=== PATIENT | male | born 1955 | race African-American/Black ===

== ENCOUNTER 2020-05-09 10:36 | Outpatient (REF) | payer OTHER, SELFPAY ==
[2020-05-09 11:50] LABS: MANUAL DIFF FLAG NO
[2020-05-09 11:57] LABS: Basophils Percent Auto 0.3 % (0-2); Eosinophils Absolute Auto 0.1 X10*3/uL (0.0-0.4); Eosinophils Percent Auto 1.7 % (0-4); Hematocrit 42.6 % (42-52); Hemoglobin 14.2 g/dl (14.0-18.0); Imm Gran Abs Auto 0.02 X10*3/uL (0.00-0.03); Imm Gran Pct Auto 0.3 % (0.0-0.4); Lymphocytes Absolute Auto 2.1 X10*3/uL (1.2-4.9); Lymphocytes Percent Auto 29.9 % (20-40); Mean Corpuscular HGB Conc 33.3 g/dl (31.0-36.0); Mean Corpuscular Volume 90.1 fL (80-98); Mean Platelet Volume 12.1 fL (9.4-12.4); Monocytes Absolute Auto 0.5 X10*3/uL (0.1-1.2); Monocytes Percent Auto 7.1 % (2-11); Neutrophils Absolute Auto 4.2 X10*3/uL (2.0-8.3); Neutrophils Percent Auto 60.7 % (45-73); Platelet Count 196 X10*3/uL (160-400); Red Blood Count 4.73 X10*6/uL (4.60-5.80); Red Cell Distribution Width 11.9 % (11.0-16.0); White Blood Count 6.9 X10*3/uL (4.8-10.8)
[2020-05-09 12:09] LABS: Glucose Urine UA NEG (NEG); Leukocyte Esterase Urine NEG (NEG); Nitrite Urine NEG (NEG); PH 5.5 (5.0-8.0); Specific Gravity - Urine 1.025 (1.005-1.025); Urine Blood NEG (NEG); Urine Ketones NEG (NEG); Urine Protein NEG (NEG-TRACE)
[2020-05-09 12:13] LABS: Appearance Urine CLEAR; Color Urine YELLOW
[2020-05-09 12:33] LABS: Alanine Aminotransferase 19 U/L (0-40); Albumin Level 4.1 g/dL (3.5-5.0); Alkaline Phosphatase 71 U/L (39-117); Anion Gap 13 (12-20); Aspartate Amino Transferase 17 U/L (5-37); Bilirubin Total 1.7 mg/dL (0.0-1.0); Blood Urea Nitrogen 8 mg/dL (9-16); Calcium 8.9 mg/dL (8.4-10.2); Carbon Dioxide 29 mmol/L (22-29); Chloride 103 mmol/L (96-108); Cholesterol 133 mg/dL; Estimated Glomerular Filt Rate > 60; Glucose Fasting 163 mg/dL (60-99); HDL Cholesterol 32 mg/dL; LDL Cholesterol Calculated 82 mg/dl; Potassium 4.3 mmol/l (3.3-5.1); Sodium 141 mmol/L (135-145); Total Protein 7.1 g/dL (6.5-8.0); Triglycerides 96 mg/dL
[2020-05-09 12:42] LABS: Estimated Average Glucose 137 mg/dL; Hemoglobin A1c % 6.4 %
[2020-05-09 13:07] LABS: Reflex LDLD? No
[2020-05-09 13:10] LABS: Prostate Specific Antigen Scr 5.36 ng/mL (<0.05-4.0)
[2020-05-09 13:11] LABS: Microalbum/Creatinine Ratio Ur 47.4 ug/mg cr
== END 2020-05-09 10:37 | disposition home or self-care (01) ==
LOC: HO.LAB 10:36
PROVIDERS: PCP Internal Medicine; Visit Provider Internal Medicine
DX: Z00.00 Encounter for general adult medical examination without abnormal findings (principal); I10 Essential (primary) hypertension; E11.9 Type 2 diabetes mellitus without complications; E78.00 Pure hypercholesterolemia, unspecified; R97.20 Elevated prostate specific antigen [PSA]; Z12.5 Encounter for screening for malignant neoplasm of prostate
CPT/HCPCS: 36415; 80053; 80061; 81003; 82043; 83036; 84153; 85025

== ENCOUNTER 2020-11-13 10:12 | Outpatient (REF) | payer OTHER, SELFPAY ==
[2020-11-13 10:38] LABS: Estimated Average Glucose 137 mg/dL; Hemoglobin A1c % 6.4 %
[2020-11-13 10:55] LABS: Alanine Aminotransferase 15 U/L (0-40); Albumin Level 3.9 g/dL (3.5-5.0); Alkaline Phosphatase 73 U/L (39-117); Aspartate Amino Transferase 15 U/L (5-37); Bilirubin Direct 0.4 mg/dL (0.0-0.5); Bilirubin Total 1.2 mg/dL (0.0-1.0); Cholesterol 127 mg/dL; Glucose Fasting 163 mg/dL (60-99); HDL Cholesterol 33 mg/dL; LDL Cholesterol Calculated 75 mg/dl; Total Protein 7.1 g/dL (6.5-8.0); Triglycerides 97 mg/dL
[2020-11-13 11:28] LABS: Reflex LDLD? No
== END 2020-11-13 10:13 | disposition home or self-care (01) ==
LOC: HO.LNP 10:12
PROVIDERS: Visit Provider Internal Medicine
DX: E11.9 Type 2 diabetes mellitus without complications (principal); E78.00 Pure hypercholesterolemia, unspecified
CPT/HCPCS: 80061; 80076; 82947; 83036

== ENCOUNTER 2021-05-09 07:21 | Day surgery (SDC) | payer OTHER, SELFPAY ==
--- NOTE | 2021-05-08 13:54 | P.CONAN_ITS ---
Documented by User: Elo Byers NP 05/08/21 13:55 HPI - Anesthesia Eval Consult details Narrative: 66yo M for Colonoscopy [facility] Past Medical History Medical History (Updated 05/08/21 @ 12:19 by Azra Rice RN) Diabetes GERD (gastroesophageal reflux disease) Hyperlipidemia Hypertension Normal esophagogastroduodenoscopy (EGD) Surgical History Surgical History (Updated 05/08/21 @ 12:19 by Azra Rice RN) History of colonoscopy Social History Social History Patient Tobacco Use Status: Current someday Tobacco user Tobacco use type: Cigar Use of substances other than those prescribed or required for medical reasons: No Have you been hit, kicked, punched, or otherwise hurt by someone within the past year? If so, by whom?: No Are you DNR?: No Advance Directives: No Advance Directives Information Provided: Yes Meds Allergies Allergy/AdvReac Type Severity Reaction Status Date / Time No Known Allergies Allergy Unverified 05/07/21 20:20 Home Medications Medication Instructions Recorded Confirmed Last Taken Type Aspir-81 81 mg PO DAILY 05/08/21 05/08/21 Unknown History Fish Oil 1,000 mg PO DAILY 05/08/21 05/08/21 Unknown History atorvastatin 05/08/21 Unknown History lansoprazole 20 mg PO DAILY 05/08/21 05/08/21 Unknown History lisinopril 20 mg PO BID 05/08/21 05/08/21 Unknown History metformin 500 mg PO BID 05/08/21 05/08/21 Unknown History Exam Exam Date and Time: May 08, 2021 1354 Assessment and Plan Assessment Anesthesia Assessment: Chart Reviewed Documented by User: Champ Faustin 05/09/21 08:03 [facility] Past Medical History Medical History (Updated 05/08/21 @ 12:19 by Azra Rice RN) Diabetes GERD (gastroesophageal reflux disease) Hyperlipidemia Hypertension Normal esophagogastroduodenoscopy (EGD) Family History Family history of problems with anesthesia: No Surgical History Surgical History (Updated 05/08/21 @ 12:19 by Azra Rice RN) History of colonoscopy History of Problems with Anesthesia: No Social History Social History Patient Tobacco Use Status: Current someday Tobacco user Tobacco use type: Cigar Use of substances other than those prescribed or required for medical reasons: No Have you been hit, kicked, punched, or otherwise hurt by someone within the past year? If so, by whom?: No Are you DNR?: No Advance Directives: No Advance Directives Information Provided: Yes Meds Allergies Allergy/AdvReac Type Severity Reaction Status Date / Time No Known Allergies Allergy Unverified 05/07/21 20:20 Home Medications Medication Instructions Recorded Confirmed Last Taken Type Aspir-81 81 mg PO DAILY 05/08/21 05/08/21 Unknown History Fish Oil 1,000 mg PO DAILY 05/08/21 05/08/21 Unknown History atorvastatin 05/08/21 Unknown History lansoprazole 20 mg PO DAILY 05/08/21 05/08/21 Unknown History lisinopril 20 mg PO BID 05/08/21 05/08/21 Unknown History metformin 500 mg PO BID 05/08/21 05/08/21 Unknown History Exam Airway Mallampati Class: III TM Dist: >3cm Neck ROM: Full Loose/Missing/Broken Teeth: Yes (Caps and crowns ) Assessment and Plan Final Anesthetic Review Family History of Problems with Anesthesia: No History of Problems with Anesthesia: No NPO: Yes Final Preanesthetic Review: Anes Risks/Benef Reviewed Patient Risk: Intermediate Procedure Risk: Intermediate Anesthetic Plan Anesthetic Plan: MAC: Disposition: Standard PACU
[2021-05-09 07:26] VITALS: BMI 25.4
[2021-05-09 07:42] VITALS: BP 121/78; PULSE 96; RESP 18; TEMP 36.7; O2SAT 99
[2021-05-09 07:45] LABS: Glucose, Whole Blood 150 mg/dL (60-115)
[2021-05-09] MEDS: Lactated Ringers 1,000 ML 100 ML IVCONT (08:04)
[2021-05-09 09:36] VITALS: BP 97/58; PULSE 91; RESP 18; TEMP 36.3; O2SAT 98
--- NOTE | 2021-05-09 09:40 | P.BOP_ITS ---
Brief Operative Note Date of Service: 05/09/21 Pre-op diagnosis: Screening Post-op diagnosis: other (Colon polyp) Procedure: Colonoscopy to cecum and TI with bx/removal of polyp Surgeon: Kvng Salazar Anesthesia: MAC Was an Health Education Coordinator used for this Procedure?: No Estimated blood loss (mL): 2.0 Pathology: other (A. Cecal polyp) Condition: stable Disposition: PACU
[2021-05-09 09:51] VITALS: BP 111/74; PULSE 80; RESP 17; TEMP 36.3; O2SAT 100
--- NOTE | 2021-05-09 11:02 | OP_ITS ---
SURGEON: Kvng Salazar MD INDICATIONS: The patient presents for followup of colorectal cancer screening and personal history of tubular adenoma of the colon. Full consent was obtained from him for this, including risks of bleeding and perforation. PREOPERATIVE DIAGNOSIS: POSTOPERATIVE DIAGNOSIS: PROCEDURE PERFORMED: Colonoscopy to cecum and terminal ileum with biopsy and removal of polyp. ESTIMATED BLOOD LOSS: COMPLICATIONS: ANESTHESIA: ASSISTANTS: SPECIMENS: PREOPERATIVE DIAGNOSES: Colorectal cancer screening and personal history of tubular adenoma of the colon. POSTOPERATIVE DIAGNOSES: Colorectal cancer screening and personal history of tubular adenoma of the colon, small colon polyp, diverticulosis, and internal hemorrhoids. PREOPERATIVE MEDICATION USED: Monitored anesthesia care. DESCRIPTION OF PROCEDURE: The patient was placed in the left lateral decubitus position. The digital rectal exam revealed no abnormalities. The Olympus video pediatric colonoscope was entered into the rectum and advanced easily to the cecum. Once in the cecum, I did identify normal-appearing cecal pouch other than a 3 mm polyp, which was biopsied and completely removed with cold biopsy forceps. The remainder of the cecum and ileocecal valve appeared normal. The terminal ileum was cannulated and appeared normal. The scope was withdrawn back in the colon. The scope was slowly withdrawn assessing all mucosal surfaces carefully. Preparation was excellent. I did not visualize any sign of other polyps, colitis, nor angiodysplasia. There was a mild amount of sigmoid diverticulosis. In the rectum, scope was retroflexed visualizing internal hemorrhoids, but no other pathology. The rectal mucosa appeared normal. The scope was straightened and withdrawn from the patient. He tolerated the procedure well and was returned to the recovery area in stable condition. IMPRESSION: 1. Small colon polyp, status post biopsy removal. 2. Diverticulosis. 3. Internal hemorrhoids. PLAN: The results of biopsy will be checked. I would recommend a repeat colonoscopy in 5 years for further screening and surveillance. He would otherwise see me on a p.r.n. basis. MD DONNA Díaz/CLARI / [phone]
== END 2021-05-09 10:35 | disposition home or self-care (01) ==
PROVIDERS: PCP Internal Medicine; Visit Provider Internal Medicine
PROC: 0DJD8ZZ Inspection of Lower Intestinal Tract, Via Natural or Artificial Opening Endoscopic (ICD-10-PCS; CPT 45378; principal; 2021-05-09 08:30)
DX: Z12.11 Encounter for screening for malignant neoplasm of colon (principal); Z86.010 Personal history of colon polyps; K63.5 Polyp of colon; K57.30 Diverticulosis of large intestine without perforation or abscess without bleeding; K64.8 Other hemorrhoids; K21.9 Gastro-esophageal reflux disease without esophagitis; E78.5 Hyperlipidemia, unspecified; I10 Essential (primary) hypertension; E11.9 Type 2 diabetes mellitus without complications; Z79.84 Long term (current) use of oral hypoglycemic drugs; Z79.899 Other long term (current) drug therapy
CPT/HCPCS: 45380; 82947; 88305

== ENCOUNTER 2021-05-28 10:53 | Outpatient (REF) | payer OTHER, SELFPAY ==
[2021-05-28 10:58] LABS: MANUAL DIFF FLAG NO
[2021-05-28 11:08] LABS: Basophils Percent Auto 0.3 % (0-2); Eosinophils Absolute Auto 0.2 X10*3/uL (0.0-0.4); Eosinophils Percent Auto 2.6 % (0-4); Hematocrit 43.4 % (42.0-52.0); Hemoglobin 13.9 g/dl (14.0-18.0); Imm Gran Abs Auto 0.03 X10*3/uL (0.00-0.03); Imm Gran Pct Auto 0.4 % (0.0-0.4); Lymphocytes Absolute Auto 2.5 X10*3/uL (1.2-4.9); Lymphocytes Percent Auto 31.8 % (20-40); Mean Corpuscular Hemoglobin 29.8 pg (27.0-33.0); Mean Corpuscular Volume 93.1 fL (80.0-98.0); Mean Platelet Volume 12.5 fL (9.4-12.4); Monocytes Absolute Auto 0.6 X10*3/uL (0.1-1.2); Neutrophils Absolute Auto 4.5 x10*3/uL (2.0-8.3); Neutrophils Percent Auto 56.9 % (45-73); Platelet Count 213 X10*3/uL (160-400); Red Blood Count 4.66 X10*6/uL (4.60-5.80); Red Cell Distribution Width 11.9 % (11.0-16.0); White Blood Count 7.8 X10*3/uL (4.8-10.8)
[2021-05-28 11:15] LABS: Appearance Urine CLEAR; Color Urine YELLOW; Glucose Urine UA NEG (NEG); Leukocyte Esterase Urine NEG (NEG); Nitrite Urine NEG (NEG); PH 5.5 (5.0-8.0); Urine Blood NEG (NEG); Urine Ketones NEG (NEG); Urine Protein NEG (NEG-TRACE)
[2021-05-28 11:34] LABS: Estimated Average Glucose 137 mg/dL; Hemoglobin A1c % 6.4 %
[2021-05-28 12:04] LABS: Creatinine Urine 99.48 mg/dL; Microalbum/Creatinine Ratio Ur 28.1 ug/mg cr
[2021-05-28 12:25] LABS: Alanine Aminotransferase 25 U/L (0-40); Alkaline Phosphatase 63 U/L (39-117); Anion Gap 13 (12-20); Aspartate Amino Transferase 18 U/L (5-37); Bilirubin Total 1.3 mg/dL (0.0-1.0); Blood Urea Nitrogen 7 mg/dL (9-16); Calcium 9.3 mg/dL (8.4-10.2); Carbon Dioxide 28 mmol/L (22-29); Chloride 104 mmol/L (96-108); Cholesterol 124 mg/dL; Estimated Glomerular Filt Rate > 60; Glucose Fasting 137 mg/dL (60-99); HDL Cholesterol 29 mg/dL; LDL Cholesterol Calculated 71 mg/dl; Potassium 3.9 mmol/L (3.3-5.1); Sodium 141 mmol/L (135-145); Total Protein 7.2 g/dL (6.5-8.0); Triglycerides 123 mg/dL
[2021-05-28 12:26] LABS: PSA,Total (Free>4and<10) 9.25 ng/mL (0.00-4.00)
[2021-05-29 14:21] LABS: Free Prostate Spec Ag 0.8 ng/mL; Percent Free Prostate Spec Ag 11 % (calc) (>25); Prostate Specific Ag Total 7.6 ng/mL (< OR = 4.0)
== END 2021-05-28 10:54 | disposition home or self-care (01) ==
LOC: HO.LNP 10:53
PROVIDERS: PCP Internal Medicine; Visit Provider Internal Medicine
DX: Z00.00 Encounter for general adult medical examination without abnormal findings (principal); I10 Essential (primary) hypertension; E11.9 Type 2 diabetes mellitus without complications; E78.00 Pure hypercholesterolemia, unspecified; R97.20 Elevated prostate specific antigen [PSA]; Z12.5 Encounter for screening for malignant neoplasm of prostate
CPT/HCPCS: 80053; 80061; 81003; 82043; 83036; 84153; 84154; 85025

== ENCOUNTER 2021-11-20 10:40 | Outpatient (REF) | payer OTHER, SELFPAY ==
[2021-11-20 11:10] LABS: Estimated Average Glucose 148 mg/dL; Hemoglobin A1c % 6.8 %
[2021-11-20 11:11] LABS: Alanine Aminotransferase 21 U/L (0-40); Albumin Level 4.2 g/dL (3.5-5.0); Alkaline Phosphatase 68 U/L (39-117); Aspartate Amino Transferase 18 U/L (5-37); Bilirubin Direct 0.5 mg/dL (0.0-0.5); Bilirubin Total 1.4 mg/dL (0.0-1.0); Cholesterol 119 mg/dL; HDL Cholesterol 28 mg/dL; LDL Cholesterol Calculated 70 mg/dl; Total Protein 7.4 g/dL (6.5-8.0); Triglycerides 108 mg/dL
[2021-11-20 13:13] LABS: Reflex LDLD? No
== END 2021-11-20 10:41 | disposition home or self-care (01) ==
LOC: HO.LNP 10:40
PROVIDERS: Visit Provider Internal Medicine
DX: E11.9 Type 2 diabetes mellitus without complications (principal); E78.00 Pure hypercholesterolemia, unspecified
CPT/HCPCS: 80061; 80076; 82043; 83036

== ENCOUNTER 2021-11-29 11:11 | Outpatient (REF) | payer OTHER, SELFPAY ==
[2021-11-29 12:43] LABS: Appearance Urine CLEAR; Color Urine YELLOW; Glucose Urine UA 100 MG/DL (NEG); Leukocyte Esterase Urine NEG (NEG); Nitrite Urine NEG (NEG); PH 5.5 (5.0-8.0); Specific Gravity - Urine 1.025 (1.005-1.025); Urine Blood NEG (NEG); Urine Ketones NEG (NEG); Urine Protein NEG (NEG-TRACE)
[2021-11-29 13:32] LABS: Creatinine Urine 201.48 mg/dL; Microalbum/Creatinine Ratio Ur 8.4 ug/mg cr
== END 2021-11-29 11:12 | disposition home or self-care (01) ==
LOC: HO.LNP 11:11
PROVIDERS: Visit Provider Internal Medicine
DX: E11.9 Type 2 diabetes mellitus without complications (principal); I10 Essential (primary) hypertension
CPT/HCPCS: 81003; 82043

== ENCOUNTER 2022-05-28 11:32 | Outpatient (REF) | payer MEDICARE, SELFPAY ==
[2022-05-28 11:38] LABS: MANUAL DIFF FLAG NO
[2022-05-28 12:04] LABS: Basophils Percent Auto 0.1 % (0-2); Eosinophils Absolute Auto 0.3 X10*3/uL (0.0-0.4); Eosinophils Percent Auto 3.8 % (0-4); Hematocrit 40.8 % (42.0-52.0); Hemoglobin 13.7 g/dl (14.0-18.0); Imm Gran Abs Auto 0.01 X10*3/uL (0.00-0.03); Imm Gran Pct Auto 0.1 % (0.0-0.4); Lymphocytes Absolute Auto 2.6 X10*3/uL (1.2-4.9); Lymphocytes Percent Auto 35.1 % (20-40); Mean Corpuscular HGB Conc 33.6 g/dl (31.0-36.0); Mean Corpuscular Volume 92.3 fL (80.0-98.0); Mean Platelet Volume 12.4 fL (9.4-12.4); Monocytes Absolute Auto 0.6 X10*3/uL (0.1-1.2); Monocytes Percent Auto 8.3 % (2-11); Neutrophils Absolute Auto 3.8 x10*3/uL (2.0-8.3); Neutrophils Percent Auto 52.6 % (45-73); Platelet Count 165 X10*3/uL (160-400); Red Blood Count 4.42 X10*6/uL (4.60-5.80); Red Cell Distribution Width 12.3 % (11.0-16.0); White Blood Count 7.3 X10*3/uL (4.8-10.8)
[2022-05-28 12:11] LABS: Appearance Urine Clear; Color Urine Yellow; Glucose Urine UA Negative (Negative); Leukocyte Esterase Urine Negative (Negative); Nitrite Urine Negative (Negative); Urine Blood Negative (Negative); Urine Ketones Negative (Negative); Urine Protein Negative (Neg-Trace)
[2022-05-28 13:01] LABS: Alanine Aminotransferase 16 U/L (0-40); Alkaline Phosphatase 72 U/L (39-117); Anion Gap 15 (12-20); Aspartate Amino Transferase 18 U/L (5-37); Blood Urea Nitrogen 7 mg/dL (9-16); Calcium 8.9 mg/dL (8.4-10.2); Carbon Dioxide 29 mmol/L (22-29); Chloride 102 mmol/L (96-108); Cholesterol 114 mg/dL; Estimated Glomerular Filt Rate > 60; Glucose Fasting 150 mg/dL (60-99); HDL Cholesterol 29 mg/dL; LDL Cholesterol Calculated 66 mg/dl; Potassium 3.7 mmol/L (3.3-5.1); Sodium 142 mmol/L (135-145); Total Protein 6.9 g/dL (6.5-8.0); Triglycerides 98 mg/dL
[2022-05-28 13:07] LABS: Estimated Average Glucose 128 mg/dL; Hemoglobin A1c % 6.1 %
[2022-05-28 13:22] LABS: Creatinine Urine 94.65 mg/dL; Microalbum/Creatinine Ratio Ur 8.4 ug/mg cr
[2022-05-28 13:51] LABS: PSA,Total (Free>4and<10) 5.47 ng/mL (0.00-4.00)
[2022-05-29 09:37] LABS: Free Prostate Spec Ag 0.8 ng/mL; Percent Free Prostate Spec Ag 17 % (calc) (>25); Prostate Specific Ag Total 4.6 ng/mL (< OR = 4.0)
== END 2022-05-28 11:33 | disposition home or self-care (01) ==
LOC: HO.LNP 11:32
PROVIDERS: Visit Provider Internal Medicine
DX: Z00.00 Encounter for general adult medical examination without abnormal findings (principal); Z12.5 Encounter for screening for malignant neoplasm of prostate; I10 Essential (primary) hypertension; E11.9 Type 2 diabetes mellitus without complications; R97.20 Elevated prostate specific antigen [PSA]
CPT/HCPCS: 80053; 80061; 81003; 82043; 83036; 84153; 84154; 85025

== ENCOUNTER 2023-06-10 10:54 | Outpatient (REF) | payer MEDICARE, SELFPAY ==
[2023-06-10 10:59] LABS: MANUAL DIFF FLAG NO
[2023-06-10 11:35] LABS: Appearance Urine Clear; Color Urine Yellow; Glucose Urine UA Negative (Negative); Leukocyte Esterase Urine Negative (Negative); Nitrite Urine Negative (Negative); Specific Gravity - Urine <= 1.005 (1.005-1.025); Urine Blood Negative (Negative); Urine Ketones Negative (Negative); Urine Protein Negative (Neg-Trace)
[2023-06-10 11:39] LABS: Basophils Percent Auto 0.3 % (0-2); Eosinophils Absolute Auto 0.1 X10*3/uL (0.0-0.4); Hematocrit 41.5 % (42.0-52.0); Imm Gran Abs Auto 0.02 X10*3/uL (0.00-0.03); Imm Gran Pct Auto 0.3 % (0.0-0.4); Lymphocytes Absolute Auto 2.6 X10*3/uL (1.2-4.9); Lymphocytes Percent Auto 36.7 % (20-40); Mean Corpuscular HGB Conc 33.7 g/dl (31.0-36.0); Mean Corpuscular Hemoglobin 30.9 pg (27.0-33.0); Mean Corpuscular Volume 91.6 fL (80.0-98.0); Monocytes Absolute Auto 0.5 X10*3/uL (0.1-1.2); Monocytes Percent Auto 7.3 % (2-11); Neutrophils Absolute Auto 3.7 x10*3/uL (2.0-8.3); Neutrophils Percent Auto 53.4 % (45-73); Platelet Count 185 X10*3/uL (160-400); Red Blood Count 4.53 X10*6/uL (4.60-5.80); Red Cell Distribution Width 11.5 % (11.0-16.0); White Blood Count 6.9 X10*3/uL (4.8-10.8)
[2023-06-10 11:42] LABS: Bacteria Urine None Seen (None Seen); Hyaline Casts Urine 0-2 /LPF (0-2); RBC Urine 0-2 /HPF (0-2); Squamous Epithelial Cell Urine 0-2 /HPF (0-2); WBC Urine 0-5 /HPF (0-5)
[2023-06-10 11:48] LABS: Estimated Average Glucose 117 mg/dL; Hemoglobin A1c % 5.7 % (<6.0)
[2023-06-10 11:56] LABS: Alanine Aminotransferase 17 U/L (0-40); Albumin Level 4.1 g/dL (3.5-5.0); Alkaline Phosphatase 71 U/L (39-117); Anion Gap 14 (12-20); Aspartate Amino Transferase 20 U/L (5-37); Bilirubin Total 1.7 mg/dL (0.0-1.0); Blood Urea Nitrogen 11 mg/dL (9-16); Calcium 8.9 mg/dL (8.4-10.2); Carbon Dioxide 31 mmol/L (22-29); Chloride 97 mmol/L (96-108); Cholesterol 101 mg/dL (<200); Estimated Glomerular Filt Rate > 60; Glucose Fasting 149 mg/dL (60-99); HDL Cholesterol 24 mg/dL (>40); LDL Cholesterol Calculated 58 mg/dL (<100); Sodium 138 mmol/L (135-145); Total Protein 7.5 g/dL (6.5-8.0); Triglycerides 97 mg/dL (<150)
[2023-06-10 12:25] LABS: Creatinine Urine 52.64 mg/dL; Microalbumin Urine < 5.0 mg/L
[2023-06-10 13:23] LABS: PSA,Total (Free>4and<10) 13.08 ng/mL (0.00-4.00)
== END 2023-06-10 10:55 | disposition home or self-care (01) ==
LOC: HO.LNP 10:54
PROVIDERS: Visit Provider Internal Medicine
DX: Z12.5 Encounter for screening for malignant neoplasm of prostate (principal); I10 Essential (primary) hypertension; E78.00 Pure hypercholesterolemia, unspecified; E11.9 Type 2 diabetes mellitus without complications; R97.20 Elevated prostate specific antigen [PSA]
CPT/HCPCS: 80053; 80061; 81001; 82043; 82570; 83036; 84153; 85025

== ENCOUNTER 2023-07-22 11:14 | Outpatient (REF) | payer MEDICARE, SELFPAY ==
[2023-07-22 12:54] LABS: PSA,Total (Free>4and<10) 6.33 ng/mL (0.00-4.00)
[2023-07-24 10:29] LABS: Free Prostate Spec Ag 0.7 ng/mL; Percent Free Prostate Spec Ag 12 % (calc) (>25); Prostate Specific Ag Total 5.7 ng/mL (< OR = 4.0)
== END 2023-07-22 11:15 | disposition home or self-care (01) ==
LOC: HO.LNP 11:14
PROVIDERS: Visit Provider Internal Medicine
DX: Z12.5 Encounter for screening for malignant neoplasm of prostate (principal); R97.20 Elevated prostate specific antigen [PSA]
CPT/HCPCS: 84153; 84154

== ENCOUNTER 2023-12-16 11:09 | Outpatient (REF) | payer MEDICARE, SELFPAY ==
[2023-12-16 11:37] LABS: Estimated Average Glucose 134 mg/dL; Hemoglobin A1c % 6.3 % (<6.0)
[2023-12-16 11:41] LABS: Alanine Aminotransferase 18 U/L (0-40); Albumin Level 4.1 g/dL (3.5-5.0); Alkaline Phosphatase 60 U/L (39-117); Aspartate Amino Transferase 19 U/L (5-37); Bilirubin Direct 0.4 mg/dL (0.0-0.5); Bilirubin Total 1.6 mg/dL (0.0-1.0); Cholesterol 113 mg/dL (<200); Glucose Fasting 150 mg/dL (60-99); HDL Cholesterol 31 mg/dL (>40); LDL Cholesterol Calculated 62 mg/dL (<100); Total Protein 7.1 g/dL (6.5-8.0); Triglycerides 102 mg/dL (<150)
[2023-12-16 13:51] LABS: Reflex LDLD? No
== END 2023-12-16 11:10 | disposition home or self-care (01) ==
LOC: HO.LNP 11:09
PROVIDERS: Visit Provider Internal Medicine
DX: E11.9 Type 2 diabetes mellitus without complications (principal); E78.00 Pure hypercholesterolemia, unspecified
CPT/HCPCS: 80061; 80076; 82947; 83036

== ENCOUNTER 2024-06-18 10:18 | Outpatient (REF) | payer MEDICARE, SELFPAY ==
[2024-06-18 10:22] LABS: MANUAL DIFF FLAG NO
[2024-06-18 10:26] LABS: Appearance Urine Clear; Color Urine Yellow; Glucose Urine UA Negative (Negative); Leukocyte Esterase Urine Trace (Negative); Nitrite Urine Negative (Negative); PH 5.5 (5.0-9.0); UMIC TRIGGER UACC YES; Urine Blood Negative (Negative); Urine Ketones Trace mg/dL (Negative); Urine Protein Negative (Neg-Trace)
[2024-06-18 10:29] LABS: Bacteria Urine None Seen (None Seen); Hyaline Casts Urine 0-2 /LPF (0-2); RBC Urine 0-2 /HPF (0-2); Squamous Epithelial Cell Urine 0-2 /HPF (0-2); WBC Urine 0-5 /HPF (0-5)
[2024-06-18 10:30] LABS: Basophils Percent Auto 0.3 % (0-2); Eosinophils Absolute Auto 0.3 X10*3/uL (0.0-0.4); Eosinophils Percent Auto 4.3 % (0-4); Hematocrit 43.1 % (42.0-52.0); Hemoglobin 14.4 g/dl (14.0-18.0); Imm Gran Abs Auto 0.01 X10*3/uL (0.00-0.03); Imm Gran Pct Auto 0.1 % (0.0-0.4); Lymphocytes Absolute Auto 2.6 X10*3/uL (1.2-4.9); Lymphocytes Percent Auto 36.7 % (20-40); Mean Corpuscular HGB Conc 33.4 g/dl (31.0-36.0); Mean Corpuscular Hemoglobin 30.9 pg (27.0-33.0); Mean Corpuscular Volume 92.5 fL (80.0-98.0); Mean Platelet Volume 12.3 fL (9.4-12.4); Monocytes Absolute Auto 0.6 X10*3/uL (0.1-1.2); Monocytes Percent Auto 7.9 % (2-11); Neutrophils Absolute Auto 3.5 x10*3/uL (2.0-8.3); Neutrophils Percent Auto 50.7 % (45-73); Platelet Count 213 X10*3/uL (160-400); Red Blood Count 4.66 X10*6/uL (4.60-5.80); Red Cell Distribution Width 11.6 % (11.0-16.0); White Blood Count 6.9 X10*3/uL (4.8-10.8)
--- OUTSIDE RECORDS SUMMARY | 2024-06-18 11:08 | XMS_ITS | Clinical Summary ---
Author Organization [facility] Address [address] [place] [address] Care Team Providers Care Bonding Agent Name Role Phone Eneida Pond DO Primary Care Provider [phone] Social History Tobacco Use Types Packs/Day Years Used Date Smoking Tobacco: Never Assessed Sex and Gender Information Value Date Recorded Sex Assigned at Not on file Gender Identity Not on file Sexual Orientation Not on file Plan of Treatment Health Maintenance Due Date Last Done Comments Hepatitis C Screening 1955 COVID-19 Vaccine (#1) 1957 Depression Screening 1969 Preventative Health Evaluation 1975 DTap / Tdap / Td (1 - Tdap) 1976 Colon Cancer Screening (Colonoscopy) 2002 Shingrix-Zoster Vaccine (1 of 2) 2007 Fall Risk Assessment 2022 Pneumococcal Vaccine (1 of 1 - PCV) 2022 Influenza Vaccine (#1) 2024 RSV Adult > 60+ Yrs or Pregn ant (1 - 1-dose 75+ series) 2032 Hepatitis B Vaccines Aged Out No long er eligible based on patient's age to complete this topic RSV Ped < 20 months Aged Out No longe r eligible based on patient's age to complete this topic Care Teams Bonding Agent Relationship Specialty Start Date End Date Eneida Pond DO [address] [facility] [address] [place] [address] PCP - General Family Medicine 01/15/17
--- OUTSIDE RECORDS SUMMARY | 2024-06-18 11:08 | XMS_ITS | Clinical Summary ---
Author Organization [facility] Address [address] [place] [address] Care Team Providers Care Collections Clerk Name Role Phone Eneida Pond DO Primary Care Provider [phone] Social History Tobacco Use Types Packs/Day Years Used Date Smoking Tobacco: Never Assessed Sex and Gender Information Value Date Recorded Sex Assigned at Not on file Legal Sex Male 7:13 AM EST Gender Identity Not on file Sexual Orientation Not on file Plan of Treatment Health Maintenance Due Date Last Done Comments DTaP,Tdap,and Td Vaccines (1 - Tdap) 1976 Zoster Vaccines (1 of 2) 2007 Pneumococcal Vaccine: 50+ Ye ars (1 of 1 - PCV) 2022 COVID-19 Vaccine (1 - 2023-2 5 season) 2024 Influenza Vaccine (#1) 2024 RSV Immunization Patients 60 + Years Old (1 - 1-dose 75+ series) 2032 HIB Vaccines Aged Out No longer eligi ble based on patient's age to complete this topic HPV Vaccines Aged Out No longer eligi ble based on patient's age to complete this topic Hepatitis A Vaccines Aged Out No long er eligible based on patient's age to complete this topic Hepatitis B Vaccines Aged Out No long er eligible based on patient's age to complete this topic IPV Vaccines Aged Out No longer eligi ble based on patient's age to complete this topic MMR Vaccines Aged Out No longer eligi ble based on patient's age to complete this topic Meningococcal ACWY Vaccine Aged Out N o longer eligible based on patient's age to complete this topic RSV Immunization Patients Un ronni 20 months Aged Out No longer eligible b ased on patient's age to complete this topic Varicella Vaccines Aged Out No longer eligible based on patient's age to complete this topic Care Teams Collections Clerk Relationship Specialty Start Date End Date Eneida Pond DO [address] [facility] [address] [place] [address] PCP - General Family Medicine 01/15/17
[2024-06-18 11:16] LABS: Alanine Aminotransferase 20 U/L (0-40); Alkaline Phosphatase 64 U/L (39-117); Anion Gap 11 (12-20); Aspartate Amino Transferase 27 U/L (5-37); Blood Urea Nitrogen 11 mg/dL (9-16); Calcium 9.4 mg/dL (8.4-10.2); Carbon Dioxide 29 mmol/L (22-29); Chloride 104 mmol/L (96-108); Cholesterol 113 mg/dL (<200); Estimated Glomerular Filt Rate > 60; Glucose Fasting 156 mg/dL (60-99); HDL Cholesterol 29 mg/dL (>40); LDL Cholesterol Calculated 69 mg/dL (<100); Sodium 140 mmol/L (135-145); Total Protein 7.5 g/dL (6.5-8.0); Triglycerides 77 mg/dL (<150)
[2024-06-18 11:46] LABS: PSA,Total (Free>4and<10) 7.04 ng/mL (0.00-4.00)
[2024-06-21 12:14] LABS: Percent Free Prostate Spec Ag 15 % (calc) (>25); Prostate Specific Ag Total 6.8 ng/mL (< OR = 4.0)
== END 2024-06-18 10:19 | disposition home or self-care (01) ==
LOC: HO.LNP 10:18
PROVIDERS: Visit Provider Internal Medicine
DX: I10 Essential (primary) hypertension (principal); E78.00 Pure hypercholesterolemia, unspecified; Z12.5 Encounter for screening for malignant neoplasm of prostate; R97.20 Elevated prostate specific antigen [PSA]
CPT/HCPCS: 80053; 80061; 81001; 84153; 84154; 85025

== ENCOUNTER 2024-12-16 12:08 | Outpatient (REF) | payer MEDICARE, SELFPAY ==
--- OUTSIDE RECORDS SUMMARY | 2024-06-18 04:00 | XMS_ITS ---
Author Organization Cuate Javier MD Address [address] [place] [id number] Care Team Providers Care Tire And Lube Technician Name Role Phone Cuate Javier Primary Care Provider Results Component Value Reference Range Notes Complete Blood Count Auto Di ff Reviewed date:06/18/2024 12:33:58 PM Interpretation: Performing Lab:[facility], [address] [place] [id number] Notes/Report: White Blood Count 6.9 4.8-10.8 X10*3/uL Red Blood Count 4.66 4.60-5.80 X10*6/uL Hemoglobin 14.4 14.0-18.0 g/dl Hematocrit 43.1 42.0-52.0 % Mean Corpuscular Volume 92.5 80.0-98.0 fL Mean Corpuscular Hemoglobin 30.9 27.0-33.0 pg Mean Corpuscular HGB Conc 33.4 31.0-36.0 g/dl Red Cell Distribution Width 11.6 11.0-16.0 % Platelet Count 213 160-400 X10*3/uL Mean Platelet Volume 12.3 9.4-12.4 fL Neutrophils Percent Auto 50.7 45-73 % Imm Gran Pct Auto 0.1 0.0-0.4 % Lymphocytes Percent Auto 36.7 20-40 % Monocytes Percent Auto 7.9 2-11 % Eosinophils Percent Auto 4.3 0-4 % Basophils Percent Auto 0.3 0-2 % NRBC Pct Auto 0.0 0.0-0.2 /100WBC Neutrophils Absolute Auto 3.5 2.0-8.3 x10*3/u L Imm Gran Abs Auto 0.01 0.00-0.03 X10*3/uL Lymphocytes Absolute Auto 2.6 1.2-4.9 X10*3/u L Monocytes Absolute Auto 0.6 0.1-1.2 X10*3/uL Eosinophils Absolute Auto 0.3 0.0-0.4 X10*3/u L Basophils Absolute Auto 0.0 0.0-0.2 X10*3/uL NRBC Abs Auto 0.000 0.0-0.012 X10*3/uL PSA,Total (Free>4and<10) Reviewed date:06/18/2024 12:33:42 PM Interpretation: Performing Lab:[address] [id number] Notes/Report: PSA,Total (Free>4and<10) 7.04 0.00-4.00 ng/mL PSA methodology: Lynch Alinity i Chemiluminescent Microparticle Immunoassay (CMIA) UA ClnCatch+Micro w/rflx Cul t Reviewed date:06/18/2024 05:16:50 PM Interpretation: Performing Lab:[address] [id number] Notes/Report: Urine, Clean Catch Color Urine Yellow Appearance Urine Clear PH 5.5 5.0-9.0 Glucose Urine UA Negative Negative mg/dL Urine Blood Negative Negative Specific [place] - Urine 1.020 1.005-1.025 Urine Protein Negative Neg-Trace mg/dL Urine Ketones Trace Negative mg/dL Nitrite Urine Negative Negative Leukocyte Esterase Urine Trace Negative RBC Urine 0-2 0-2 /HPF WBC Urine 0-5 0-5 /HPF Squamous Epithelial Cell Urine 0-2 0-2 /HPF Bacteria Urine None Seen None Seen Hyaline Casts Urine 0-2 0-2 /LPF REASON FOR VISIT yearly fasting labs Encounters Encounter Location Date Provider Diagnosis Cuate Javier MD [address] [place] [phone] 06/18/2024 Cuate Javier Essential hypertensi on I10 ; Pure hypercholesterolemia E78.00 and Elevated PSA R97.20 Assessments Encounter Date Diagnosis (ICD Code) Assessment Notes Treatment Notes Treatment Clinical Notes Section Notes 06/18/2024 Essential hypertensi on (ICD-10 - I10) 06/18/2024 Pure hypercholesterolemia (ICD-10 - E78.00) 06/18/2024 Elevated PSA (ICD-10 - R97.20) Plan Of Treatment Pending Test Test Name Order Date Comprehensive Kennedy. Panel Fast Lipid Panel 06/18/2024 Next Appt Details Provider Name:Cuate Juan ier, 12/23/2024 10:45:00 AM, [address] [place] [address], [address], [phone], Provider Name:Cuate Juan ier, 06/24/2025 07:00:00 AM, [address] [place] [address], [address], [phone], Provider Name:Cuate Juan ier, 07/01/2025 11:00:00 AM, [address] [place] [address], [address], [phone], Progress Notes * Phillip PÉREZ LDOB:1954 (69 yo M)Acc No.[id number]:06/18/2024 Progress Note Patient: Phillip VALLE Provider: Rabia Javier MD :1955 A ge:69 Y S ex:Male Date:06/18/2024 Address:[address] [place], [place] [id number] Subjective: * Chief Complaints: * 1 . Yearly fasting labs. * Medical History: Objective: * Vitals: Assessment: * Assessment: 1. E ssential hypertension - I10 (Primary) 2 . P ure hypercholesterolemia - E78.00 3 . E levated PSA - R97.20 Plan: * Treatment: 2. P ure hypercholesterolemia L AB: Comprehensive Kennedy. Panel Fast L AB: Lipid Panel L AB: Complete Blood Count Auto Diff (Collection Date & Time - 06/18/2024 08:00 AM) L AB: PSA,Total (Free>4and<10) (Collection Date & Time - 06/18/2024 08:00 AM) L AB: UA ClnCatch+Micro w/rflx Cult (Collection Date & Time - 06/18/2024 08:00 AM) 3. E levated PSA L AB: Comprehensive Kennedy. Panel Fast L AB: Lipid Panel L AB: Complete Blood Count Auto Diff (Collection Date & Time - 06/18/2024 08:00 AM) L AB: PSA,Total (Free>4and<10) (Collection Date & Time - 06/18/2024 08:00 AM) L AB: UA ClnCatch+Micro w/rflx Cult (Collection Date & Time - 06/18/2024 08:00 AM) * Procedure Codes: 3 6415 VENIPUNCT, ROUTINE* * * The named appointment provid er may or may not be the originator of this progress note, and it is not deemed complete until electronically signed by the appointment provider. Sign off status: Pending * Provider: Rabia Javier MD Date: 0 06/18/2024 Generated for Devon crowley/Russel/Kristoferitting on: 12/16/2024 01:04 PM EDT
[2024-12-16 12:38] LABS: Hemoglobin A1C 164.3707 umol/L; Total Hemoglobin (HGBA1C) 3726.8889 umol/L
[2024-12-16 12:40] LABS: Alanine Aminotransferase 16 U/L (0-40); Albumin Level 4.1 g/dL (3.5-5.0); Alkaline Phosphatase 60 U/L (39-117); Aspartate Amino Transferase 28 U/L (5-37); Cholesterol 108 mg/dL (<200); HDL Cholesterol 30 mg/dL (>40); Total Protein 7.1 g/dL (6.5-8.0); Triglycerides 102 mg/dL (<150)
--- OUTSIDE RECORDS SUMMARY | 2024-12-16 13:04 | XMS_ITS | Clinical Summary ---
Author Organization [address] [facility] Address [address] [place] [address] Phone Care Team Providers Care Coping Machine Operator Name Role Phone Eneida Pond DO Primary Care Provider Encounters Date Type Department Care Team Description 09/29/2024 Lab Requisition [facility] - Main Lab [address] [facility] [place] [address] Sarwat Boyd MD Elevated prostate specific antigen (PSA) from Last 3 Months Social History Tobacco Use Types Packs/Day Years Used Date Smoking Tobacco: Never Assessed Sex and Gender Information Value Date Recorded Sex Assigned at Not on file Legal Sex Male 7:13 AM EST Gender Identity Not on file Sexual Orientation Not on file Plan of Treatment Health Maintenance Due Date Last Done Comments DTaP,Tdap,and Td Vaccines (1 - Tdap) 1976 Pneumococcal Vaccine: 50+ Ye ars (1 of 1 - PCV) 2007 Zoster Vaccines (1 of 2) 2007 COVID-19 Vaccine (1 - 2023-2 5 season) 2024 Depression Screening 05/05/2024 Abdominal Aortic Aneurysm (A AA) Screen 09/29/2024 Cholesterol Screening (Lipid Panel) 09/29/2024 Colorectal Cancer Screening: Colonoscopy 09/29/2024 Falls Risk Assessment 09/29/2024 Hepatitis C Screening 09/29/2024 Medicare Annual Wellness Visit 09/29/2024 Social Influencers of Health Screening 09/29/2024 Influenza Vaccine (#1) 2025 RSV Immunization Adult Patie nts (1 - 1-dose 75+ series) 2032 HIB [...] patient's age to complete this topic Meningococcal B Vaccine Aged Out No l onger eligible based on patient's age to complete this topic RSV Immunization Patients Un ronni 20 months Aged Out No longer eligible b ased on patient's age to complete this topic Varicella Vaccines Aged Out No longer eligible based on patient's age to complete this topic Procedures Procedure Name Priority Date/Time Associated Diagnosis Comments AP OUTSIDE CONSULT Routine 09/28/2024 Elevated prostate specific antigen (PSA) from Last 3 Months Results * Anatomic pathology outside consult (09/28/2024) Final Diagnosis A. Prostate, Left Middle Le Center (Core Biopsy): - BENIGN STROMA ONLY. B. Prostate, Left Lateral Le Center (Core Biopsy): - BENIGN PROSTATE TISSUE. C. Prostate, Left Middle Middle (Core Biopsy): - BENIGN PROSTATE TISSUE. D. Prostate, Left Lateral Middle (Core Biopsy): -PROSTATIC ACINAR ADENOCARCINOMA, CONVENTIONAL (USUAL) TYPE -Gibson score (3+3)=6, Grade group 1 Total Number of Cores: 1 Number of Positive Cores: 1 Percentage of Prostatic Tissue Involved by Tumor: 10% E. Prostate, Left Middle Base (Core Biopsy): - BENIGN PROSTATE TISSUE. F. Prostate, Left Lateral Base (Core Biopsy): - BENIGN PROSTATE TISSUE, MOSTLY STROMA. G. Prostate, Right Middle Le Center (Core Biopsy): - BENIGN PROSTATE TISSUE. H. Prostate, Right Lateral Le Center (Core Biopsy): - BENIGN PROSTATE TISSUE. I. Prostate, Right Middle Middle (Core Biopsy): - BENIGN PROSTATE TISSUE. J. Prostate, Right Lateral Middle (Core Biopsy): - BENIGN PROSTATE TISSUE. K. Prostate, Right Middle Base (Core Biopsy): - BENIGN PROSTATE TISSUE. L. Prostate, Right Lateral Base (Core Biopsy): - BENIGN PROSTATE TISSUE. 5 9:[address] [facility] Comment D, J) PIN4 supports the diagnosis 5 9:[address] [facility] Clinical Information Elevated PSA = 7.2 (05/31/24) R97.20 [id number] 5 9:[address] [facility] Gross Description A. Prostate, Left Middle Le Center Biopsy: Received, properly labeled, are two H and E stained slides and two unstained slides. B. Prostate, Left Lateral Le Center Biopsy: Received, properly labeled, are two H and E stained slides and two unstained slides. C. Prostate, Left Middle Middle Biopsy: Received, properly labeled, are two H and E stained slides and two unstained slides. D. Prostate, Left Lateral Middle Biopsy: Received, properly labeled, are two H and E stained slides and two unstained slides. E. Prostate, Left Middle Base Biopsy: Received, properly labeled, are two H and E stained slides and two unstained slides. F. Prostate, Left Lateral Base Biopsy: Received, properly labeled, are two H and E stained slides and two unstained slides. G. Prostate, Right Middle Le Center Biopsy: Received, properly labeled, are two H and E stained slides and two unstained slides. H. Prostate, Right Lateral Le Center Biopsy: Received, properly labeled, are two H and E stained slides and two unstained slides. I. Prostate, Right Middle Middle Biopsy: Received, properly labeled, are two H and E stained slides and two unstained slides. J. Prostate, Right Lateral Middle Biopsy: Received, properly labeled, are two H and E stained slides and two unstained slides. K. Prostate, Right Middle Base Biopsy: Received, properly labeled, are two H and E stained slides and two unstained slides. L. Prostate, Right Lateral Base Biopsy: Received, properly labeled, are two H and E stained slides and two unstained slides. /al 5 9:[address] [facility] Disclaimer The immunohistochemistry and/or special stains were medically necessary and performed because the additional information was needed by the pathologist to evaluate suspicious foci. Unless otherwise specified, all tissue is 10% NB formalin fixed and paraffin embedded. Technical pathology services provided by [facility] at [address], [place] [address] (CLIA #[id number]/Rossana Villasenor MD, Melt House Centrifugal Operator) 9:34 AM EDT [facility] Tissue Prostate / Unknown 09/28/20242024 9:27 AM EDT Tissue specimen (specimen) Prostate / Unknown 09/28/2024 09/29/2024 9: 27 AM EDT Tissue specimen (specimen) Prostate / Unknown 09/28/2024 09/29/2024 9: 27 AM EDT Tissue specimen (specimen) Prostate / Unknown 09/28/2024 09/29/2024 9: 27 AM EDT Tissue specimen (specimen) Prostate / Unknown 09/28/2024 09/29/2024 9: 27 AM EDT Tissue specimen (specimen) Prostate / Unknown 09/28/2024 09/29/2024 9: 27 AM EDT Tissue specimen (specimen) Prostate / Unknown 09/28/2024 09/29/2024 9: 27 AM EDT Tissue specimen (specimen) Prostate / Unknown 09/28/2024 09/29/2024 9: 27 AM EDT Tissue specimen (specimen) Prostate / Unknown 09/28/2024 09/29/2024 9: 27 AM EDT Tissue specimen (specimen) Prostate / Unknown 09/28/2024 09/29/2024 9: 27 AM EDT Tissue specimen (specimen) Prostate / Unknown 09/28/2024 09/29/2024 9: 27 AM EDT Tissue specimen (specimen) Prostate / Unknown 09/28/2024 09/29/2024 9: 27 AM EDT us Sarwat Boyd MD LAB PATHOLOGY ORDERABLES Final Result [facility] ([facility]) [facility] [address] [place] [address], [place] [phone] from Last 3 Months Insurance [facility] MEDICARE Care Teams Coping Machine Operator Relationship Specialty Start Date End Date Eneida Pond DO [address] [place] [phone] PCP - General Family Medicine 01/15/17
--- OUTSIDE RECORDS SUMMARY | 2024-12-16 13:04 | XMS_ITS | Clinical Summary ---
Author Organization [facility] Address [address] [place] [address] Care Team Providers Care Cartographic Drafter Name Role Phone Eneida Pond DO Primary Care Provider [phone] Social History Tobacco Use Types Packs/Day Years [...] 1 - PCV) 2022 Influenza Vaccine (#1) 2025 RSV Adult > 60+ Yrs or Pregn ant (1 - 1-dose 75+ series) 2032 Hepatitis B Vaccines Aged Out No long er eligible based on patient's age to complete this topic RSV Ped < 20 months Aged Out No longe r eligible based on patient's age to complete this topic Care Teams Cartographic Drafter Relationship Specialty Start Date End Date Eneida Pond DO [address] [facility] [address] [place] [address] PCP - General Family Medicine 01/15/17
[2024-12-16 13:25] LABS: Reflex LDLD? No
== END 2024-12-16 12:09 | disposition home or self-care (01) ==
LOC: HO.LNP 12:08
PROVIDERS: Visit Provider Internal Medicine
DX: E11.9 Type 2 diabetes mellitus without complications (principal); E78.00 Pure hypercholesterolemia, unspecified
CPT/HCPCS: 80061; 80076; 82947; 83036